=== PATIENT | male | born 1950 | race Caucasian/White ===

== ENCOUNTER → 2016-08-11 | Outpatient (CLI) | payer BC | LOC: MW.CHUR 07:59 | PROVIDERS: ATTEND Urology | DX: N40.0 Benign prostatic hyperplasia without lower urinary tract symptoms (principal); R97.20 Elevated prostate specific antigen [PSA] | CPT/HCPCS: 36415; 84153 ==

== ENCOUNTER 2020-08-23 09:18 | Emergency (ER) | payer MEDICARE ==
--- NOTE | 2020-08-23 10:07 | EDM.PDOC ---
ED HPI GENERAL MEDICAL PROBLEM - General Chief Complaint: ENT Problem Stated Complaint: SOB Time Seen by Provider: 08/23/20 09:31 Source of Information: Reports: Patient History Limitations: Reports: No Limitations - History of Present Illness INITIAL COMMENTS - FREE TEXT/NARRATIVE: Patient is a 69-year-old male who presents today for body aches sore throat and cough. Patient states that he received this Covid vaccination on August 21 and since that times had the symptoms. States that he also has a decrease in appetite but is tolerating food and liquids and has no nausea or or diarrhea. Patient denies any chest pain or abdominal pain. Patient denies any recent travels or sick contacts. Sore Throat Pain Score (Numeric/FACES): 8 - Related Data Allergies Allergy/AdvReac Type Severity Reaction Status Date / Time No Known Allergies Allergy Verified 08/23/20 09:28 Home Meds: Home Meds Celecoxib 1 tab PO DAILY 08/23/20 [History] LORazepam [Lorazepam] 1 tab PO TID 08/23/20 [History] atorvaSTATin [Lipitor] 1 tab PO DAILY 08/23/20 [History] buPROPion HCL [Bupropion HCl Sr] 1 tab PO BID 08/23/20 [History] Past Medical History - Infectious Disease History Infectious Disease History: Reports: None - Past Surgical History Cardiovascular Surgical History: Reports: Other (See Below) Other Cardiovascular Surgeries/Procedures: Carotid surgery in Jun 2020 Social & Family History - Tobacco Use Tobacco Use Status *Q: Former Tobacco User Used Tobacco, but Quit: Yes Month/Year Tobacco Last Used: 06/2017 - Caffeine Use Caffeine Use: Reports: Tea - Recreational Drug Use Recreational Drug Use: No ED ROS GENERAL - Review of Systems Review Of Systems: See Below Constitutional: Reports: No Symptoms HEENT: Reports: No Symptoms Respiratory: Reports: No Symptoms Cardiovascular: Reports: No Symptoms Endocrine: Reports: No Symptoms GI/Abdominal: Reports: No Symptoms : Reports: No Symptoms Musculoskeletal: Reports: No Symptoms Skin: Reports: No Symptoms Neurological: Reports: No Symptoms Psychiatric: Reports: No Symptoms Hematologic/Lymphatic: Reports: No Symptoms Immunologic: Reports: No Symptoms ED EXAM, GENERAL - Physical Exam Exam: See Below Exam Limited By: No Limitations General Appearance: Alert, WD/WN Eye Exam: Bilateral Eye: EOMI, PERRL Respiratory/Chest: No Respiratory Distress, Lungs Clear, Normal Breath Sounds Cardiovascular: Normal Peripheral Pulses, Regular Rate, Rhythm GI/Abdominal: Normal Bowel Sounds, Soft, Non-Tender Extremities: Normal Inspection, Normal Range of Motion, Non-Tender Neurological: Alert, Oriented, CN II-XII Intact, Normal Cognition, Normal Gait Course - Vital Signs Last Recorded V/S: Last Vital Signs Temp 98.3 F 08/23/20 09:31 Pulse 94 08/23/20 09:59 Resp 16 08/23/20 09:31 BP 147/82 H 08/23/20 09:59 Pulse Ox 94 L 08/23/20 09:59 - Orders/Labs/Meds Labs: Laboratory Tests 08/23/20 08/23/20 08/23/20 Range/Units 10:00 10:13 10:13 WBC 13.62 H (4.0-11.0) K/uL RBC 4.83 (4.50-5.90) M/uL Hgb 15.5 (13.0-17.0) g/dL Hct 45.7 (38.0-50.0) % MCV 94.6 (80.0-98.0) fL MCH 32.1 H (27.0-32.0) pg MCHC 33.9 (31.0-37.0) g/dL RDW Std Deviation 47.0 (28.0-62.0) fl RDW Coeff of Mellisa 14 (11.0-15.0) % Plt Count 100 L (150-400) K/uL MPV 11.20 (7.40-12.00) fL Neut % (Auto) 95.8 H (48.0-80.0) % Lymph % (Auto) 1.7 L (16.0-40.0) % Davidson % (Auto) 2.3 (0.0-15.0) % Eos % (Auto) 0.1 (0.0-7.0) % Baso % (Auto) 0.1 (0.0-1.5) % Neut # (Auto) 13.1 H (1.4-5.7) K/uL Lymph # (Auto) 0.2 L (0.6-2.4) K/uL Davidson # (Auto) 0.3 (0.0-0.8) K/uL Eos # (Auto) 0.0 (0.0-0.7) K/uL Baso # (Auto) 0.0 (0.0-0.1) K/uL Nucleated RBC % 0.0 /100WBC Nucleated RBCs # 0 K/uL Sodium 138 (136-148) mmol/L Potassium 3.6 (3.5-5.1) mmol/L Chloride 102 (98-107) mmol/L Carbon Dioxide 26.6 (21.0-32.0) mmol/L BUN 17 (7.0-18.0) mg/dL Creatinine 1.0 (0.8-1.3) mg/dL Est Cr Clr Drug Dosing 71.72 mL/min Estimated GFR (MDRD) > 60.0 ml/min Glucose 124 H (74-106) mg/dL Calcium 8.6 (8.5-10.1) mg/dL Group A Strep (PCR) NOT DETECTED (NOT DETECT) - Re-Assessments/Exams Free Text/Narrative Re-Assessment/Exam: 08/23/20 11:02 Patient x-ray strep and labs reviewed. Patient does have a low platelets past no signs of bleeding or liver issues. Patient made aware and will follow up with PMD as outpatient. Departure - Departure Time of Disposition: 11:03 Disposition: Home, Self-Care 01 Condition: Good, Fair Clinical Impression: Viral illness - Discharge Information *PRESCRIPTION DRUG MONITORING PROGRAM REVIEWED*: Not Applicable *COPY OF PRESCRIPTION DRUG MONITORING REPORT IN PATIENT SELINA: Not Applicable Instructions: Viral Illness, Adult Referrals: Antonino Porter MD [Primary Care Provider] - Forms: ED Department Discharge Additional Instructions: The following information is given to patients seen in the emergency department who are being discharged to home. This information is to outline your options for follow-up care. We provide all patients seen in our emergency department with a follow-up referral. The need for follow-up, as well as the timing and circumstances, are variable depending upon the specifics of your emergency department visit. If you don't have a primary care physician on staff, we will provide you with a referral. We always advise you to contact your personal physician following an emergency department visit to inform them of the circumstance of the visit and for follow-up with them and/or the need for any referrals to a consulting specialist. The emergency department will also refer you to a specialist when appropriate. This referral assures that you have the opportunity for follow-up care with a specialist. All of these measure are taken in an effort to provide you with optimal care, which includes your follow-up. Under all circumstances we always encourage you to contact your private physician who remains a resource for coordinating your care. When calling for follow-up care, please make the office aware that this follow-up is from your recent emergency room visit. If for any reason you are refused follow-up, please contact the [facility] Emergency Department at and asked to speak to the emergency department charge nurse. Please follow up with your primary care physician. If you do not have a primary care physician, see below: [facility] [address] [place] [id number] My [facility] [address] [place] [address] Please follow-up with your primary care physician. Also your platelets are low recommend following up soon. If you have any increased bleeding please return to the ED. As far as your body aches and sore throat. This may relate related to a viral illness. Stay hydrated at home take Motrin Tylenol as needed and get plenty of rest. Sepsis Event Note (ED) - Evaluation Sepsis Screening Result: No Definite Risk - Focused Exam Vital Signs: Vital Signs Temp Pulse Resp BP Pulse Ox 08/23/20 09:59 94 147/82 H 94 L 08/23/20 09:31 98.3 F 106 H 16 139/95 H 95 - Assessment/Plan Plan: Patient is a 69-year-old male who presents today for body aches and sore throat. Patient also had a recent cold vaccine. Will obtain basic labs check x-ray and reassess.
[2020-08-23 10:39] LABS: BLOOD UREA NITROGEN,BUN 17 mg/dL (7.0-18.0); CARBON DIOXIDE,CO2 26.6 mmol/L (21.0-32.0); CHLORIDE,CL 102 mmol/L (98-107); GLUCOSE RANDOM 124 mg/dL (74-106); POTASSIUM,K 3.6 mmol/L (3.5-5.1); SODIUM,NA 138 mmol/L (136-148)
--- NOTE | 2020-08-23 10:51 | CR ---
INDICATION: COVID shot yesterday. Could not sleep last night. Patient feels like cannot breathe. TECHNIQUE: AP portable chest x-ray. COMPARISON: CT chest 01/29/2016. FINDINGS: The small and tiny nodules in both lungs on the prior CT are too small to identify on plain film. Platelike atelectasis or scarring in the lungs. Emphysema. Heart size normal. Old bilateral rib fractures. Chest otherwise negative without acute disease. Dictated by Ayden Sosa MD @ Aug 23 2020 10:48AM Signed by Dr. Ayden Sosa @ Aug 23 2020 10:50AM
== END 2020-08-23 11:11 | disposition home or self-care (01) ==
LOC: MW.ED 09:18
DX: B34.9 Viral infection, unspecified (principal); Z87.891 Personal history of nicotine dependence
CPT/HCPCS: 36415; 71045; 71045-26; 80048; 85025; 87651-QW; 99283-25

== ENCOUNTER 2021-09-08 12:14 | Emergency (ER) | payer MEDICARE, BC ==
[2021-09-08 12:58] LABS: BLOOD UREA NITROGEN,BUN 16 mg/dL (7.0-18.0); CHLORIDE,CL 102 mmol/L (98-107); GLUCOSE RANDOM 111 mg/dL (74-106); POTASSIUM,K 3.9 mmol/L (3.5-5.1); SODIUM,NA 140 mmol/L (136-148)
== END 2021-09-08 13:48 | disposition home or self-care (01) ==
LOC: MW.ED 12:14
DX: I10 Essential (primary) hypertension (principal)
CPT/HCPCS: 36415; 71045; 71045-26; 80053; 81001; 84484; 85025; 93005; 93010; 99284; 99284-25

== ENCOUNTER 2022-01-25 07:30 | Day surgery (SDC) | payer MEDICARE, BC ==
[~2022-01-25 07:30] MED LIST: Lactated Ringers 1,000 ML IV SCH; Lidocaine 2% 5 ML SDV ONE; Propofol 200 MG/20 ML SDV ONE; fentaNYL 100 MCG/2 ML SDV ONE
[2022-01-25] MEDS ORDERED: Phenylephrine HCl In 0.9% NaCl 1 MG/10 ML Vial ONE (08:21)
[2022-01-25] MEDS ORDERED: Propofol 200 MG/20 ML SDV ONE (08:50)
[2022-01-25] MEDS ORDERED: Lactated Ringers 1,000 ML IV SCH (09:15)
== END 2022-01-25 09:51 | disposition home or self-care (01) ==
LOC: MW.SDS 07:30
PROVIDERS: ATTEND Surgery
DX: Z12.11 Encounter for screening for malignant neoplasm of colon (principal); D12.2 Benign neoplasm of ascending colon; D12.4 Benign neoplasm of descending colon; K57.30 Diverticulosis of large intestine without perforation or abscess without bleeding; I10 Essential (primary) hypertension; F32.A Depression, unspecified; F41.9 Anxiety disorder, unspecified; N40.0 Benign prostatic hyperplasia without lower urinary tract symptoms; E78.00 Pure hypercholesterolemia, unspecified; M19.041 Primary osteoarthritis, right hand; M19.042 Primary osteoarthritis, left hand; Z86.010 Personal history of colon polyps; Z79.82 Long term (current) use of aspirin; Z79.899 Other long term (current) drug therapy; Z79.02 Long term (current) use of antithrombotics/antiplatelets; Z98.890 Other specified postprocedural states; Z87.891 Personal history of nicotine dependence
CPT/HCPCS: 45380; J2704; J3010; J7120; 00812; 88305; 99100